=== PATIENT | male | born 1995 | race Asian ===

== ENCOUNTER 2023-09-28 07:51 | Emergency (ER) | payer BC ==
[~2023-09-28] VITALS: Ht 182.9 cm; Wt 87.0 kg
[2023-09-28 08:03] VITALS: O2SAT 99
[2023-09-28] MEDS: ONDANSETRON 4MG ODT PO STA (08:22)
[2023-09-28] MEDS: ACETAMINOPHEN WITH CODEINE 300/30MG TABLET PO STA (08:22)
[2023-09-28 08:36] LABS: BASOPHILS % 0.2 % (0.0-2.0); EOSINOPHILS % 4.8 % (0.0-5.0); HEMATOCRIT. 36.8 % (42.0-52.0); HEMOGLOBIN. 10.7 g/dL (14.0-18.0); LYMPHOCYTES % 19.1 % (20.0-50.0); MEAN CORPUSCULAR HEMOGLOBIN 18.9 pg (28.0-32.0); MEAN CORPUSCULAR HGB CONC 29.2 g/dL (31.0-37.0); MEAN CORPUSCULAR VOLUME 64.9 fL (80.0-94.0); MEAN PLATELET VOLUME 8.4 fl (7.4-10.4); MONOCYTES % 8.6 % (2.0-8.0); NEUTROPHILS % 67.3 % (40.0-76.0); PLATELET 268 x1000/uL (130-400); RED BLOOD CELL COUNT 5.66 mill/uL (4.7-6.1); RED CELL DISTRIBUTION WIDTH 18.2 % (11.6-14.6); WHITE BLOOD COUNT 5.8 x1000/uL (4.5-11.0)
[2023-09-28 08:39] LABS: DIFFERENTIAL COMMENT 1
[2023-09-28 08:40] LABS: ADD RBC MORPHOLOGY YES
[2023-09-28 08:51] LABS: CHLORIDE 110 mEq/L (98-107); POTASSIUM 3.7 mEq/L (3.5-5.1); SODIUM 139 mEq/L (136-145)
[2023-09-28 08:52] LABS: CALCIUM 9.7 mg/dL (8.7-10.4); CARBON DIOXIDE 25 mEq/L (21-32)
[2023-09-28 08:57] LABS: GLUCOSE 119 mg/dL (70-105); UREA NITROGEN BLOOD 10 mg/dL (9-23)
[2023-09-28 08:58] LABS: ALANINE AMINOTRANSFERASE 23 IU/L (10-49)
[2023-09-28 08:59] LABS: ALBUMIN 4.8 g/dL (3.2-4.8); ASPARTATE AMINOTRANSFERASE 16 IU/L (<34); BILIRUBIN DIRECT 0.2 mg/dL (<=3.0); BILIRUBIN TOTAL 0.6 mg/dL (0.1-1.0); PROTEIN TOTAL 6.9 g/dL (6.0-8.3)
[2023-09-28] MEDS: SODIUM CHLORIDE 0.9% 1,000 ML IV ONE (09:05)
[2023-09-28 09:25] LABS: CLARITY URINE CLEAR (CLEAR); COLOR URINE YELLOW (YELLOW); GLUCOSE URINE NEGATIVE (NEGATIVE); KETONES URINE NEGATIVE (NEGATIVE); LEUKOCYTE ESTERASE URINE NEGATIVE (NEGATIVE); NITRITE URINE NEGATIVE (NEGATIVE); OCCULT BLOOD URINE 2+ (NEGATIVE); PROTEIN URINE 1+ (NEGATIVE); SPECIFIC GRAVITY URINE 1.022 (1.005-1.030)
[2023-09-28 09:46] LABS: BACTERIA URINE 1+; RBC URINE 50-100 /hpf (0-2); SQUAMOUS EPITHELIAL CELL URINE NONE SEEN /lpf (RARE/1+); YEAST URINE NONE SEEN
[2023-09-28] MEDS: IOHEXOL-300 100 ML BOTTLE ONE (10:32)
[2023-09-28 10:40] LABS: ANISOCYTOSIS 2+; HYPOCHROMASIA 1+; MICROCYTOSIS 4+; PLATELET ESTIMATE NORMAL
[2023-09-28] MEDS ORDERED: TAMS-11 PO (10:46)
[2023-09-28] MEDS ORDERED: HYDR-4001 MT (10:46)
[2023-09-28] MEDS ORDERED: ONDA4TAB11 PO (10:46)
[2023-09-28] MEDS ORDERED: CEFP200T13 MT (10:54)
[2023-09-28] MEDS: KETOROLAC 15MG/ML VIAL IV ONE (10:58)
[2023-09-28 11:02] VITALS: BP 150/91; PULSE 60; RESP 20; TEMP 98.2
== END 2023-09-28 11:08 | disposition home or self-care (01) ==
LOC: ER 07:51
DX: N20.0 Calculus of kidney (principal)
CPT/HCPCS: 80076; 80048; 81003; 83605; 83690; 85025; 36415; 74177; 96374; 99285; Q9967; Q0162; J1885; J7030; Z7610